=== PATIENT | male | born 1970 | race Two or more races ===

== ENCOUNTER 2021-02-04 09:22 | Inpatient (IN) | payer OTHER ==
[2021-02-04] VITALS (12 sets, daily range): BP systolic 113–154; BP diastolic 42–105
[~2021-02-04] VITALS: Ht 175.3 cm; Wt 74.8 kg
--- NOTE | 2021-02-04 09:35 | NUR ---
Patient brought in RA 88 for a suspected seizure
[2021-02-04 09:43] LABS: BASOPHILS # (AUTO) 0.1 K/uL (0.0-8.0); BASOPHILS % (AUTO) 0.7 % (0.0-2.0); HEMATOCRIT 35.9 % (36.7-47.1); HEMOGLOBIN 11.5 g/dL (12.5-16.3); LYMPHOCYTES # (AUTO) 0.8 K/uL (20.0-40.0); LYMPHOCYTES % (AUTO) 8.5 % (20.5-51.5); MEAN CORPUSCULAR HEMOGLOBIN 27.6 uug (23.8-33.4); MEAN CORPUSCULAR HGB CONC 32 g/dL (32.5-36.3); MEAN CORPUSCULAR VOLUME 86.5 fL (73.0-96.2); MONOCYTES # (AUTO) 0.9 K/uL (2.0-10.0); MONOCYTES % (AUTO) 9.4 % (0.0-11.0); NEUTROPHILS % (AUTO) 81.4 % (38.5-71.5); PLATELET COUNT (AUTO) 150 K/uL (152-348); RED BLOOD CELL COUNT(AUTO) 4.15 MIL/uL (4.06-5.63); WHITE BLOOD COUNT (AUTO) 9.8 K/uL (3.6-10.2)
[2021-02-04] MEDS ORDERED: IV NORMAL SALINE 1000 ML BAG IV ONE ×2 (09:45→12:00)
[2021-02-04] MEDS ORDERED: LORAZEPAM 2 MG/1 ML VIAL IV ONE ×3 (09:45→12:45)
[2021-02-04 09:52] LABS: CARBON DIOXIDE 13 mmol/L (21-32); CHLORIDE 96 mmol/L (98-107); CREATININE 1.6 mg/dL (0.6-1.3); GLUCOSE 161 mg/dL (74-106); POTASSIUM 3.3 mmol/L (3.5-5.1); UREA NITROGEN, BLOOD 11 mg/dL (7-18)
[2021-02-04] MEDS ORDERED: LORAZEPAM 2 MG/1 ML VIAL ONE ×3 (09:52→12:53)
[2021-02-04 09:53] LABS: ETHANOL < 3 MG/DL (0-0)
[2021-02-04 09:57] LABS: ALANINE AMINOTRANSFERASE 99 U/L (16-63); ALKALINE PHOSPHATASE 85 U/L (50-136); ASPARTATE AMINOTRANSFERASE 133 U/L (15-37); BILIRUBIN,DIRECT 0.3 mg/dL (0.0-0.2); BILIRUBIN,TOTAL 0.9 mg/dL (0.2-1.0)
[2021-02-04 10:03] LABS: ACETAMINOPHEN < 2.0 ug/mL (10-30)
[2021-02-04 10:24] LABS: THYROID STIMULATING HORMONE 2.289 mIU/mL (0.358-3.740)
[2021-02-04] MEDS ORDERED: ACETAMINOPHEN ES 500 MG TABLET PO ONE (10:45)
[2021-02-04] MEDS ORDERED: NEOMY/BACITRA/POLYMYXIN B OINT UD PACKET TP ONE ×2 (10:45→10:51)
[2021-02-04] MEDS ORDERED: ACETAMINOPHEN ES 500 MG TABLET ONE (10:51)
[2021-02-04] MEDS ORDERED: POTASSIUM BICARBONATE/CIT AC 25 MEQ TABLET.EFF PO ONE (11:00)
[2021-02-04] MEDS ORDERED: POTASSIUM BICARBONATE/CIT AC 25 MEQ TABLET.EFF ONE (11:01)
[2021-02-04] MEDS ORDERED: ONDANSETRON 4 MG/2 ML VIAL ONE ×2 (11:26)
[2021-02-04] MEDS ORDERED: ONDANSETRON 4 MG/2 ML VIAL IV ONE (11:30)
[2021-02-04] MEDS ORDERED: PANTOPRAZOLE SODIUM 40 MG VIAL IV ONE (11:30)
[2021-02-04 11:45] LABS: *BILIRUBIN,URIN NEGATIVE (NEGATIVE); *BLOOD, URINE 1+ (NEGATIVE); *CLARITY,URINE CLEAR (CLEAR); *COLOR,URINE YELLOW (YELLOW); *KETONES,URINE TRACE (NEGATIVE); *UROBILINOGEN,URINE 0.2 E.U./dl (NORMAL); LEUKOCYTE ESTERASE ,URINE NEGATIVE (NEGATIVE); NITRITE, URINE NEGATIVE (NEGATIVE); PH,URINE 5.5 (5.0-8.0); UGLUCOSE NEGATIVE (NEGATIVE)
[2021-02-04 12:00] LABS: *AMPHETAMINE, URINE NEGATIVE (NEGATIVE); *CANNABINOID, URINE NEGATIVE (NEGATIVE); *COCCAINE, URINE NEGATIVE (NEGATIVE); *OPIATE, URINE NEGATIVE (NEGATIVE); *PHENCYCLIDINE SCREEN,URINE NEGATIVE (NEGATIVE)
[2021-02-04] MEDS ORDERED: PANTOPRAZOLE SODIUM 40 MG VIAL ONE (12:03)
--- NOTE | 2021-02-04 12:07 | NUR ---
side rails padded, no signs of acute distress noted
[2021-02-04] MEDS ORDERED: POTASSIUM CHLORIDE 50 ML IV SCH (13:00)
[2021-02-04] MEDS ORDERED: THIAMINE HCL INJ 100 MG in IV DEXTROSE 5% 50 ML IV SCH (13:00)
[2021-02-04] MEDS ORDERED: FOLIC ACID 5 MG/ML VIAL IV ONE ×2 (13:00→13:08)
[2021-02-04] MEDS ORDERED: IV D5/ 0.9% NACL 1,000 ML IV ONE (13:00)
[2021-02-04] MEDS ORDERED: THIAMINE HCL 200 MG/2 ML VIAL ONE (13:08)
[2021-02-04] MEDS ORDERED: POTASSIUM CHLORIDE 50 ML ONE (13:08)
--- NOTE | 2021-02-04 13:10 | NUR ---
CATHY MATHIS spoke yo Dr Temple for admit to [facility].
--- NOTE | 2021-02-04 14:12 | NUR ---
Pt. admitted to [facility] , under care of Dr. Henao Belongs List completed and belongings sent
--- NOTE | 2021-02-04 14:14 | NUR ---
D5 NS IV fluids continued on transfer to CCU unit
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
[2021-02-04] MEDS ORDERED: ONDANSETRON 4 MG/2 ML VIAL IV PRN (14:45)
[2021-02-04] MEDS ORDERED: MAGNESIUM HYDROXIDE 30 ML LIQUID UDC PO PRN (14:45)
[2021-02-04] MEDS ORDERED: Z GUARD REMEDY PASTE 57 GM TUBE TOP PRN (14:45)
[2021-02-04] MEDS ORDERED: MVI ADULT 10 ML VIAL=1 AMP 10 ML, THIAMINE HCL INJ 100 MG, FOLIC ACID 1 MG, MAGNESIUM S... IV SCH (14:45)
[2021-02-04] MEDS ORDERED: MAGNESIUM SULFATE/D5W 100 ML IV ONE (15:00)
[2021-02-04] MEDS ORDERED: MVI ADULT 10 ML VIAL=1 AMP 10 ML in IV NS 1000 ML 1,000 ML IV PRN (15:00)
[2021-02-04] MEDS: LORAZEPAM 2 MG/1 ML VIAL IV PRN ×3 (15:01→23:31)
[2021-02-04] MEDS: IV NS 1000 ML 1,000 ML IV PRN (15:02)
[2021-02-04] MEDS ORDERED: MVI ADULT 10 ML VIAL=1 AMP 10 ML in IV NS 1000 ML 1,000 ML IV ONE (15:30)
[2021-02-04] MEDS ORDERED: MVI ADULT 10 ML VIAL=1 AMP 10 ML in IV D5/ 0.9% NACL 1,000 ML IV ONE (15:30)
[2021-02-04 15:44] LABS: BACTERIA,URINE FEW /HPF (NONE SEEN); SQUAMOUS EPITHELIAL CELL,UR FEW /HPF (NONE SEEN)
[2021-02-04] MEDS ORDERED: FOLIC ACID 1 MG in IV DEXTROSE 5% 50 ML IV SCH (16:00)
--- NOTE | 2021-02-04 19:00 | NUR ---
Received patient in bed awake and alert. 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 Patient is able toeat and dring regularly. Patient is continent and uses a urinal. Patient has a generalized rash all over his back, neck, and shoulders. Currently on room air.
[2021-02-04] MEDS ORDERED: PERMETHRIN 5% CREAM 60 GM TUBE TP ONE (21:00)
--- NOTE | 2021-02-04 22:15 | NUR ---
Patient removed his peripheral IV line. Catheter intact, site free from blood or injury. New 18g peripheral IV placed in the right forearm, great return, and flushes easily. Patient tolerated without discomfort.
[2021-02-05] VITALS: BP 139/82
--- NOTE | 2021-02-05 02:20 | NUR ---
Transferred up to 3rd floor room 320.Report given to POLO Lombardo. Patient remains in stable condition, no SOB or signs of distress. Patient alert and cooperative. All medications and belongings transferred with the patient.
--- NOTE | 2021-02-05 02:30 | NUR ---
RECEIVED PT FROM CCU. ASSISTED PT TO HIS ROOM. PT IN NO ACUTE DISTRESS. IV INTACT. PT ON RESTRAINT WITH DR SHEPHERD. PT CONFUSED AND TRYING TO REMOVE IV LINES AND TRYING TO GET OUT OF BED. SITTER FOR SAFETY. FPC ASSESSMENT DONE. SKIN ISSUES DOCUMENTED AND PUT ON CHART. SAFETY AND COMFORT PROVIDED. WILL CONTINUE TO MONITOR.
[2021-02-05] MEDS: IV NS 1000 ML 1,000 ML IV PRN ×3 (03:18→19:56)
[2021-02-05 05:00] VITALS: BP 130/80
[2021-02-05] MEDS: LORAZEPAM 2 MG/1 ML VIAL IV PRN ×4 (06:06→19:55)
[2021-02-05 06:40] LABS: BASOPHILS % (AUTO) 0.7 % (0.0-2.0); EOSINOPHILS # (AUTO) 0.1 K/uL (0.0-0.7); EOSINOPHILS % (AUTO) 1.3 % (0.0-7.0); HEMATOCRIT 33.7 % (36.7-47.1); LYMPHOCYTES # (AUTO) 1.5 K/uL (20.0-40.0); LYMPHOCYTES % (AUTO) 22.4 % (20.5-51.5); MEAN CORPUSCULAR HEMOGLOBIN 27.8 uug (23.8-33.4); MEAN CORPUSCULAR HGB CONC 33 g/dL (32.5-36.3); MEAN CORPUSCULAR VOLUME 84.9 fL (73.0-96.2); MONOCYTES % (AUTO) 16.1 % (0.0-11.0); NEUTROPHILS # (AUTO) 3.9 K/uL (1.8-8.9); NEUTROPHILS % (AUTO) 59.5 % (38.5-71.5); PLATELET COUNT (AUTO) 130 K/uL (152-348); RED BLOOD CELL COUNT(AUTO) 3.97 MIL/uL (4.06-5.63); WHITE BLOOD COUNT (AUTO) 6.5 K/uL (3.6-10.2)
--- NOTE | 2021-02-05 06:45 | NUR ---
PT SLEPT INTERMITTENTLY. SITTER FOR SAFETY. ATIVAN 2MG PRN GIVEN AT 0606H BECAUSE PT TRYING TO GET OUT OF BED AND REMOVED IV LINES. PT TOLERATED IT WELL. SAFETY AND COMFORT PROVIDED. ALL NEEDS ARE MET. WILL ENDORSE THAT PTY NEED TO DO BEDBATH TO WASH ELEMITE CREAM ON THE PT. WILL ENDORSE TO INCOMING NURSE FOR CONTINUITY OF CARE.
[2021-02-05 06:54] LABS: CREATININE 0.8 mg/dL (0.6-1.3); MAGNESIUM 2.1 mg/dL (1.8-2.4); PHOSPHOROUS 2.8 mg/dL (2.5-4.9); POTASSIUM 3.6 mmol/L (3.5-5.1); TOTAL PROTEIN, SERUM 7.8 g/dL (6.4-8.2)
[2021-02-05 07:00] VITALS: BP 146/85
[2021-02-05 07:03] LABS: THYROID STIMULATING HORMONE 1.623 mIU/mL (0.358-3.740)
[2021-02-05 07:06] LABS: EOSINOPHILS % (MANUAL) 1 % (0-8); LYMPHOCYTES % (MANUAL) 22 % (20-40); MONOCYTES % (MANUAL) 23 % (2-10); NEUTROPHILS % (MANUAL) 54 % (42-75)
--- NOTE | 2021-02-05 07:45 | NUR ---
Confused, restless. 1:1 sitter at bedside. Bilateral soft restraints, monitored per protocol. side rail padded. IVF infusing. Contact isolation reenforced and maintained
--- NOTE | 2021-02-05 09:30 | NUR ---
Wash off after Elimite treatment done with complete bed bath and shampoo. Noted lice on hair and kaplan. Shaving of kaplan done. Contact isolation maintained.
--- NOTE | 2021-02-05 11:35 | NUR ---
Patient restless and agitated, Ativan IV given as ordered
[2021-02-05] MEDS: MULTIVITAMINS,THERAPEUTIC TABLET PO SCH (11:37)
--- NOTE | 2021-02-05 11:51 | NUR ---
Hoist Cylinder Loader consultation requested due to homelessness. Due to isolation precautions, this BARBER SHOP OPERATOR will complete assessment by video. This BARBER SHOP OPERATOR to coordinate with patient's nurse to set up a time for video session.
[2021-02-05 12:00] VITALS: BP 150/86
[2021-02-05] MEDS ORDERED: FOLIC ACID 1 MG in IV DEXTROSE 5% 50 ML IV SCH (13:00)
[2021-02-05] MEDS: IBUPROFEN 400 MG TABLET PO PRN (13:25)
[2021-02-05] MEDS: CHLORDIAZEPOXIDE HCL 25 MG CAPSULE PO SCH ×2 (13:25→18:00)
[2021-02-05] MEDS: THIAMINE HCL 100 MG TABLET PO SCH (13:25)
[2021-02-05] MEDS: FOLIC ACID 1 MG TABLET PO SCH (13:25)
--- NOTE | 2021-02-05 13:25 | NUR ---
Patient still agitated and profusely sweating, called Dr. Henao with orders. Librium po started.
[2021-02-05] MEDS ORDERED: THIAMINE HCL INJ 100 MG in IV DEXTROSE 5% 50 ML IV SCH (13:30)
--- NOTE | 2021-02-05 15:30 | NUR ---
Patient agitated, restless, getting out of bed multiple times, Ativan given as ordered, not effective for relief of symptoms
[2021-02-05 16:30] VITALS: BP 138/84
--- NOTE | 2021-02-05 16:32 | NUR ---
Attempted abdominal and kid ultrasound at 11:00 and 14:00. Pt uncooperative and restless both times.
[2021-02-05] MEDS ORDERED: HALOPERIDOL LACTATE 5 MG/1 ML VIAL IM ONE (17:30)
[2021-02-05 17:49] LABS: *BILIRUBIN,URIN NEGATIVE (NEGATIVE); *BLOOD, URINE TRACE (NEGATIVE); *CLARITY,URINE CLEAR (CLEAR); *COLOR,URINE YELLOW (YELLOW); *KETONES,URINE NEGATIVE (NEGATIVE); LEUKOCYTE ESTERASE ,URINE NEGATIVE (NEGATIVE); NITRITE, URINE NEGATIVE (NEGATIVE); PH,URINE 6.5 (5.0-8.0); UGLUCOSE NEGATIVE (NEGATIVE)
[2021-02-05 17:53] LABS: *URINE TOTAL PROTEIN RANDOM 41.6 mg/dL (<150/24HR)
[2021-02-05 17:59] LABS: BACTERIA,URINE NONE SEEN /HPF (NONE SEEN); MUCUS,URINE FEW /LPF (0-FEW); RBC,URINE 0-3 /HPF (0-3); SQUAMOUS EPITHELIAL CELL,UR NONE SEEN /HPF (NONE SEEN)
--- NOTE | 2021-02-05 18:24 | NUR ---
Still agitated, called Dr. Henao with order, Haldol IM given as ordered. Repositioned in bed comfortably. Soft wrist restraints, monitored per protocol. 1:1 sitter at bedside
[2021-02-05 20:00] VITALS: BP 144/80
[2021-02-06 00:16] VITALS: BP 132/74
[2021-02-06] MEDS: IV NS 1000 ML 1,000 ML IV PRN ×2 (04:04→13:15)
[2021-02-06] MEDS: LORAZEPAM 2 MG/1 ML VIAL IV PRN ×4 (04:04→21:58)
[2021-02-06 05:10] VITALS: BP 134/88
[2021-02-06 07:03] LABS: BASOPHILS # (AUTO) 0.1 K/uL (0.0-8.0); BASOPHILS % (AUTO) 1.5 % (0.0-2.0); EOSINOPHILS # (AUTO) 0.1 K/uL (0.0-0.7); EOSINOPHILS % (AUTO) 2.1 % (0.0-7.0); HEMATOCRIT 32.8 % (36.7-47.1); HEMOGLOBIN 10.9 g/dL (12.5-16.3); LYMPHOCYTES # (AUTO) 1.7 K/uL (20.0-40.0); LYMPHOCYTES % (AUTO) 26.1 % (20.5-51.5); MEAN CORPUSCULAR HGB CONC 33 g/dL (32.5-36.3); MEAN CORPUSCULAR VOLUME 84.5 fL (73.0-96.2); MONOCYTES # (AUTO) 1.3 K/uL (2.0-10.0); MONOCYTES % (AUTO) 19.9 % (0.0-11.0); NEUTROPHILS # (AUTO) 3.3 K/uL (1.8-8.9); NEUTROPHILS % (AUTO) 50.4 % (38.5-71.5); PLATELET COUNT (AUTO) 131 K/uL (152-348); RED BLOOD CELL COUNT(AUTO) 3.88 MIL/uL (4.06-5.63); WHITE BLOOD COUNT (AUTO) 6.5 K/uL (3.6-10.2)
[2021-02-06 07:24] LABS: CREATININE 0.8 mg/dL (0.6-1.3); MAGNESIUM 1.8 mg/dL (1.8-2.4); PHOSPHOROUS 2.5 mg/dL (2.5-4.9); TOTAL PROTEIN, SERUM 7.8 g/dL (6.4-8.2)
[2021-02-06 08:00] VITALS: BP 140/89
--- NOTE | 2021-02-06 08:00 | NUR ---
Sitter at bedside for safety secondary pt is attempting to pull out his IV and get oob. IVF infusing as ordered. no s/s of infiltration noted. Instructed sitter to offer urinal every hour and meet any basic needs. Pt denies any c/o pain. PT is Colombian speaking. Padded side rail for seizure precaution secondary to possible etoh withdrawal.
[2021-02-06] MEDS: CHLORDIAZEPOXIDE HCL 25 MG CAPSULE PO SCH ×3 (09:04→17:28)
[2021-02-06] MEDS: FOLIC ACID 1 MG TABLET PO SCH (09:04)
[2021-02-06] MEDS: MULTIVITAMINS,THERAPEUTIC TABLET PO SCH (09:04)
[2021-02-06] MEDS: THIAMINE HCL 100 MG TABLET PO SCH (09:05)
[2021-02-06] MEDS ORDERED: POTASSIUM CHLORIDE 20 MEQ TAB.PRT.SR PO ONE ×2 (09:30→11:30)
--- NOTE | 2021-02-06 10:00 | NUR ---
haleigh Wrist restraint released secondary to pt toni cooperative.
--- NOTE | 2021-02-06 10:03 | NUR ---
Belt And Link Assembly Supervisor note: This BROKE BEATER MACHINE OPERATOR contacted patient's nurse Galva to schedule a time to do a video assessment with the patient. Galva stated that he would coordinate the request, and call this BROKE BEATER MACHINE OPERATOR back.
[2021-02-06 11:03] VITALS: BP 144/80
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
[2021-02-06 14:51] LABS: EOSINOPHILS % (MANUAL) 3 % (0-8); LYMPHOCYTES % (MANUAL) 25 % (20-40); MONOCYTES % (MANUAL) 20 % (2-10); NEUTROPHILS % (MANUAL) 52 % (42-75)
[2021-02-06 16:00] VITALS: BP 144/88
--- NOTE | 2021-02-06 19:30 | NUR ---
Received pt in bed, awake and verbally responsive. Slovenian speaking but understands Mongolian. Able to communicate needs. No s/s of respiratory distress. Denies any pain or discomfort. IV fluids infusing well. Pt with bilateral wrist restraints for safety. Padded side rails for seizure precaution. Safety measures initiated, sitter at bedside. will continue to monitor.
[2021-02-06 20:00] VITALS: BP 141/87
[2021-02-06] MEDS: POTASSIUM CHLORIDE 20 MEQ in IV 1/2NS 1000 ML 1,000 ML IV PRN (22:12)
[2021-02-06] MEDS: IBUPROFEN 400 MG TABLET PO PRN (23:04)
[2021-02-07] MEDS ORDERED: LORAZEPAM 2 MG/1 ML VIAL IV ONE (00:15)
--- NOTE | 2021-02-07 00:20 | NUR ---
Pt is agitated, getting out of bed, fighting back. Notified Dr. Devlin and received an order for Ativan 2mg IV x 1. Medication given, tolerated well.
[2021-02-07] MEDS ORDERED: HALOPERIDOL LACTATE 5 MG/1 ML VIAL IM ONE (01:30)
--- NOTE | 2021-02-07 02:15 | NUR ---
Pt's CIWA-Ar is 35 with increased agitation, fighting to get out of bed,refusing care. Notified Dr. Devlin and received an order of Haldol 2mg IM x 1. Medication administered as ordered. Pt tolerated medication well. Calmed down and fell asleep. VS are as follows: BP: 145/80, P: 101, RR: 20, T: 98,O2: 97. Will continue to monitor.
[2021-02-07 04:04] VITALS: BP 134/79
--- NOTE | 2021-02-07 06:32 | NUR ---
Pt asleep but easily arousable, denies any pain or discomfort. Non labored breathing. IVF infusing well. Medications tolerated. Urinal at bedside. Bilateral soft wrist restraints on. Safety measures maintained at all times. all needs attended.
[2021-02-07 06:58] LABS: BASOPHILS # (AUTO) 0.1 K/uL (0.0-8.0); BASOPHILS % (AUTO) 1.1 % (0.0-2.0); EOSINOPHILS # (AUTO) 0.2 K/uL (0.0-0.7); EOSINOPHILS % (AUTO) 3.1 % (0.0-7.0); LYMPHOCYTES # (AUTO) 2.2 K/uL (20.0-40.0); LYMPHOCYTES % (AUTO) 30.7 % (20.5-51.5); MEAN CORPUSCULAR HEMOGLOBIN 27.5 uug (23.8-33.4); MEAN CORPUSCULAR HGB CONC 32 g/dL (32.5-36.3); MONOCYTES # (AUTO) 1.1 K/uL (2.0-10.0); MONOCYTES % (AUTO) 15.4 % (0.0-11.0); NEUTROPHILS # (AUTO) 3.5 K/uL (1.8-8.9); NEUTROPHILS % (AUTO) 49.7 % (38.5-71.5); PLATELET COUNT (AUTO) 148 K/uL (152-348); RED BLOOD CELL COUNT(AUTO) 3.99 MIL/uL (4.06-5.63); WHITE BLOOD COUNT (AUTO) 7.1 K/uL (3.6-10.2)
[2021-02-07 07:19] LABS: CREATININE 0.7 mg/dL (0.6-1.3); MAGNESIUM 1.9 mg/dL (1.8-2.4); PHOSPHOROUS 4.3 mg/dL (2.5-4.9)
--- NOTE | 2021-02-07 07:30 | NUR ---
START OF SHIFT received change of shift report, pt in bed c/o of delirium tremens, a/o x3, confused at times. pt has scabies on the upper back and head lice, pt on room air, no signs of distress, no reports of pain, pt ambulatory with assist, unsteady. Urinal at bedside, diaper on. Iv access on the right FA 20g infusing 1/2 NS+20KCL at 100cc. pt on bilateral soft wrist restraints, will continue to monitor.
[2021-02-07 08:11] VITALS: BP 136/93
[2021-02-07] MEDS: THIAMINE HCL 100 MG TABLET PO SCH (08:52)
[2021-02-07] MEDS: MULTIVITAMINS,THERAPEUTIC TABLET PO SCH (08:52)
[2021-02-07] MEDS: FOLIC ACID 1 MG TABLET PO SCH (08:52)
[2021-02-07] MEDS: CHLORDIAZEPOXIDE HCL 25 MG CAPSULE PO SCH ×3 (08:52→17:18)
[2021-02-07] MEDS ORDERED: IBUPROFEN 400 MG TABLET PO PRN (09:03)
[2021-02-07] MEDS: POTASSIUM CHLORIDE 20 MEQ TAB.PRT.SR PO SCH ×2 (09:42→11:51)
[2021-02-07] MEDS: POTASSIUM CHLORIDE 20 MEQ in IV 1/2NS 1000 ML 1,000 ML IV PRN ×2 (09:42→21:48)
[2021-02-07] MEDS ORDERED: HALOPERIDOL DECANOATE 50 MG/1 ML AMPUL IM PRN (11:15)
[2021-02-07] MEDS ORDERED: PERMETHRIN 5% CREAM 60 GM TUBE TP ONE (11:30)
[2021-02-07 12:00] VITALS: BP 131/87
--- NOTE | 2021-02-07 12:00 | NUR ---
pt agreed to have hair shaved to help decrease number of fleas, lice and eggs. Pt was given bath in Elimite cream, to be washed out at 2000 today.
[2021-02-07] MEDS ORDERED: HALOPERIDOL LACTATE 5 MG/1 ML VIAL IM PRN (12:45)
[2021-02-07 12:46] LABS: LYMPHOCYTES % (MANUAL) 29 % (20-40); NEUTROPHILS % (MANUAL) 57 % (42-75)
[2021-02-07 12:47] LABS: EOSINOPHILS % (MANUAL) 1 % (0-8); MONOCYTES % (MANUAL) 13 % (2-10)
[2021-02-07] MEDS: LORAZEPAM 2 MG/1 ML VIAL IV PRN (13:01)
[2021-02-07 16:00] VITALS: BP 133/77
--- NOTE | 2021-02-07 17:15 | NUR ---
pt urinated all over floor, pt has urinal at bedside and turned on his side to urinate on floor x2.
--- NOTE | 2021-02-07 17:20 | NUR ---
pt pulled out IV and cut the IV tubing to the Fluids with his teeth. will attempt to start another IV, to continue with fluids.
--- NOTE | 2021-02-07 18:17 | NUR ---
pt has 1:1 sitter at bedside, a/ox3 with spells of confusion, pt has upper back scabies, was cleaned with Elimite to kill all fleas and lice, pt on room air, no reports of pain. pt on diaper, homeless, bed in low and locked position, call light within reach, safety precautions in place, will endorse to oncoming nurse.
[2021-02-07 19:57] VITALS: BP 142/78
[2021-02-08] MEDS: LORAZEPAM 2 MG/1 ML VIAL IV PRN ×3 (00:16→14:47)
--- NOTE | 2021-02-08 01:00 | NUR ---
Patient in bed awake alert with periods of confusion.On RA .No s/s of distress noted.Patient took shower .Snacks provided.Iv on Right FA with IVF running at 100 ml/hr. Tolerated well .Patient gets agitated.Tried to get out of bed.Ativan IVP given. 1:1 sitter at bedside.Seizures precaution and safety measures in place.
[2021-02-08 03:47] LABS: ALBUMIN 3.4; ALPHA-1-GLOBULIN 0.3; ALPHA-2-GLOBULIN 0.6; BETA GLOBULIN 1.1
[2021-02-08 03:48] LABS: A/G RATIO 0.9; GAMMA GLOBULIN 1.7; GLOBULIN, TOTAL 3.7; M-SPIKE NOT OBSERVED
[2021-02-08 04:00] VITALS: BP 132/68
[2021-02-08 06:07] LABS: BASOPHILS # (AUTO) 0.1 K/uL (0.0-8.0); BASOPHILS % (AUTO) 1.7 % (0.0-2.0); EOSINOPHILS # (AUTO) 0.4 K/uL (0.0-0.7); EOSINOPHILS % (AUTO) 5.2 % (0.0-7.0); HEMATOCRIT 34.5 % (36.7-47.1); HEMOGLOBIN 11.1 g/dL (12.5-16.3); LYMPHOCYTES # (AUTO) 1.9 K/uL (20.0-40.0); LYMPHOCYTES % (AUTO) 27.6 % (20.5-51.5); MEAN CORPUSCULAR HEMOGLOBIN 27.7 uug (23.8-33.4); MEAN CORPUSCULAR HGB CONC 32 g/dL (32.5-36.3); MEAN CORPUSCULAR VOLUME 86.5 fL (73.0-96.2); MONOCYTES # (AUTO) 0.9 K/uL (2.0-10.0); MONOCYTES % (AUTO) 13.4 % (0.0-11.0); NEUTROPHILS # (AUTO) 3.6 K/uL (1.8-8.9); NEUTROPHILS % (AUTO) 52.1 % (38.5-71.5); PLATELET COUNT (AUTO) 190 K/uL (152-348); RED BLOOD CELL COUNT(AUTO) 3.99 MIL/uL (4.06-5.63); WHITE BLOOD COUNT (AUTO) 6.9 K/uL (3.6-10.2)
[2021-02-08 06:29] LABS: BILIRUBIN,TOTAL 0.5 mg/dL (0.2-1.0); CREATININE 0.8 mg/dL (0.6-1.3); MAGNESIUM 1.6 mg/dL (1.8-2.4); PHOSPHOROUS 4.7 mg/dL (2.5-4.9); POTASSIUM 3.9 mmol/L (3.5-5.1); TOTAL PROTEIN, SERUM 7.4 g/dL (6.4-8.2)
--- NOTE | 2021-02-08 06:35 | NUR ---
Patient has urinal at bedside.Refused to used it .Urinated all over the floor x1. Reinforced teaching to use urinal .Sitter at bedside. Encourage patient to call for assistance. Will endorse to oncoming shift.
--- NOTE | 2021-02-08 07:36 | NUR ---
Recieved awake and responsive. In no acute distress. Calm at this time. Patient is not communicative. Sitter at bedside. BEd is low and locked. Personal belongings and call light are within reach. Safety measures maintained. Patient is comfortable. Will continue to monitor
[2021-02-08] MEDS: CHLORDIAZEPOXIDE HCL 25 MG CAPSULE PO SCH ×3 (08:43→17:15)
[2021-02-08] MEDS: MULTIVITAMINS,THERAPEUTIC TABLET PO SCH (08:43)
[2021-02-08] MEDS: THIAMINE HCL 100 MG TABLET PO SCH (08:43)
[2021-02-08] MEDS: FOLIC ACID 1 MG TABLET PO SCH (08:43)
[2021-02-08] MEDS: MAGNESIUM SULFATE/D5W 100 ML IV SCH ×2 (09:57→11:29)
[2021-02-08] MEDS: POTASSIUM CHLORIDE 20 MEQ in IV 1/2NS 1000 ML 1,000 ML IV PRN (09:57)
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
--- NOTE | 2021-02-08 11:54 | NUR ---
Due to patient's isolation precautions, SW left the homeless resource packet in patient's chart, to be given to him at time of discharge. SW also completed the homeless patient waiver form and left it in the patient's chart for nurse to have patient sign at time of discharge.
[2021-02-08 12:00] VITALS: BP 106/72
[2021-02-08] MEDS ORDERED: diphenhydrAMINE 50 MG CAPSULE PO PRN (12:30)
[2021-02-08] MEDS ORDERED: CHLO25CA22 PO (16:00)
[2021-02-08] MEDS ORDERED: ACET-2154 PO (16:00)
[2021-02-08] MEDS ORDERED: TEMA15CA PO (16:00)
[2021-02-08] MEDS ORDERED: FAMO-132 PO (16:00)
[2021-02-08] MEDS ORDERED: MAGN400O6 PO (16:00)
[2021-02-08] MEDS ORDERED: FOLI1TAB94 PO (16:00)
[2021-02-08] MEDS ORDERED: IBUP-1953 PO (16:00)
[2021-02-08] MEDS ORDERED: DIPH50CA37 PO (16:00)
[2021-02-08] MEDS ORDERED: THIA100T13 PO (16:00)
[2021-02-08] MEDS ORDERED: MULT-24 PO (16:00)
[2021-02-08 16:04] VITALS: BP 119/84
[2021-02-08] MEDS ORDERED: LACT10SO3 PO (16:19)
--- NOTE | 2021-02-08 17:00 | NUR ---
Patient for discharge gave report to Eliane CUELLAR at [facility]. Skin check done. Patient was cooperative. Patient's personal clothes were discarded a few days ago when patient had shower due to scabies and lice. Charge nurse is aware.
--- NOTE | 2021-02-08 18:20 | NUR ---
Patient is discharged picked up by 2 crop roller from [facility]. Patient alert and responsive with episodes of confusion. NO respiratory distress noted. Skin check done. Per charge nurse patient's clothes were discarded when he took shower a few days ago due to presence of lice and scabies. Patient was made aware. Patient asked for pain medication and given as ordered. He was asked if he wanted flu and pna vaccine but he refused risks and benefits explained but he shook his head. Patient is comfortable. VS WNL. Left in stable condition.
--- NOTE | 2021-02-08 19:11 | NUR ---
Addendum to discharge: Right forearm IV line was removed . No bleeding noted. No facial grimacing. Pressure dressing applied. Patient was comfortable.
== END 2021-02-08 18:20 | DRG 775 ==
LOC: ER 09:22 → EDBD 09:22 → CCU 13:38 → TELE3 02-05 02:33 → MEDSURG3 02-06 14:04
PROVIDERS: ADMIT Internal Medicine; ATTEND Internal Medicine
DX: F10.231 Alcohol dependence with withdrawal delirium (principal); N17.0 Acute kidney failure with tubular necrosis; G92 Toxic encephalopathy; D69.6 Thrombocytopenia, unspecified; G93.89 Other specified disorders of brain; B85.2 Pediculosis, unspecified; M62.82 Rhabdomyolysis; R56.9 Unspecified convulsions; E87.6 Hypokalemia; Y90.0 Blood alcohol level of less than 20 mg/100 ml; D63.8 Anemia in other chronic diseases classified elsewhere; Z20.822 Contact with and (suspected) exposure to COVID-19; Z59.0 Homelessness; E78.5 Hyperlipidemia, unspecified; B85.3 Phthiriasis; L98.9 Disorder of the skin and subcutaneous tissue, unspecified; M50.322 Other cervical disc degeneration at C5-C6 level; S00.81XA Abrasion of other part of head, initial encounter; X58.XXXA Exposure to other specified factors, initial encounter; Y93.9 Activity, unspecified; Y92.89 Other specified places as the place of occurrence of the external cause; K76.9 Liver disease, unspecified
CPT/HCPCS: 36415; 70030-TC; 70450; 71045; 72125; 83690; 83735; 83970; 84100; 84155; 84156; 84165; 84300; 84443; 85025; 85730; 87086; 93005; A9150; C9113; G0378; G0480; J1630; J2060; J2405; J3411; J3475; J3480; J3490; J7030; J7042; J7050; J7060; Q0163

== ENCOUNTER 2021-03-19 13:36 | Inpatient (IN) | payer OTHER ==
[~2021-03-19] VITALS: Ht 175.3 cm; Wt 74.8 kg
[~2021-03-19 13:36] MED LIST: ACET-2154 PO; CHLO25CA22 PO; DIPH50CA37 PO; FAMO-132 PO; FOLI1TAB94 PO; IBUP-1953 PO; LACT10SO3 PO; MAGN400O6 PO; MULT-24 PO; TEMA15CA PO; THIA100T13 PO
--- NOTE | 2021-03-19 13:44 | NUR ---
Dr Lomas at the bedside for MSE.
--- NOTE | 2021-03-19 13:58 | NUR ---
Pt out of ER for CT.
[2021-03-19 14:02] LABS: *BILIRUBIN,URIN NEGATIVE (NEGATIVE); *BLOOD, URINE NEGATIVE (NEGATIVE); *CLARITY,URINE CLEAR (CLEAR); *COLOR,URINE YELLOW (YELLOW); *KETONES,URINE NEGATIVE (NEGATIVE); *UROBILINOGEN,URINE 0.2 E.U./dl (NORMAL); BASOPHILS # (AUTO) 0.1 K/uL (0.0-8.0); BASOPHILS % (AUTO) 1.4 % (0.0-2.0); EOSINOPHILS # (AUTO) 0.1 K/uL (0.0-0.7); EOSINOPHILS % (AUTO) 1.5 % (0.0-7.0); HEMOGLOBIN 11.9 g/dL (12.5-16.3); LEUKOCYTE ESTERASE ,URINE NEGATIVE (NEGATIVE); LYMPHOCYTES # (AUTO) 2.4 K/uL (20.0-40.0); LYMPHOCYTES % (AUTO) 28.7 % (20.5-51.5); MEAN CORPUSCULAR HEMOGLOBIN 28.8 uug (23.8-33.4); MEAN CORPUSCULAR HGB CONC 33 g/dL (32.5-36.3); MEAN CORPUSCULAR VOLUME 87.1 fL (73.0-96.2); MONOCYTES # (AUTO) 0.8 K/uL (2.0-10.0); MONOCYTES % (AUTO) 9.9 % (0.0-11.0); NEUTROPHILS % (AUTO) 58.5 % (38.5-71.5); NITRITE, URINE NEGATIVE (NEGATIVE); PH,URINE 5.5 (5.0-8.0); PLATELET COUNT (AUTO) 385 K/uL (152-348); RED BLOOD CELL COUNT(AUTO) 4.14 MIL/uL (4.06-5.63); UGLUCOSE NEGATIVE (NEGATIVE); WHITE BLOOD COUNT (AUTO) 8.5 K/uL (3.6-10.2)
[2021-03-19] MEDS ORDERED: ASCO500P18 PO (14:08)
[2021-03-19] MEDS ORDERED: ACET-2605 PO ×2 (14:08)
[2021-03-19] MEDS ORDERED: DOCU-141 PO (14:08)
[2021-03-19] MEDS ORDERED: CRAN425C6 PO (14:08)
[2021-03-19 14:11] LABS: ETHANOL < 3 MG/DL (0-0)
--- NOTE | 2021-03-19 14:12 | NUR ---
PT back from CT, resting in bed, NAD noted. Continue tele monitoring.
[2021-03-19 14:13] LABS: ALANINE AMINOTRANSFERASE 24 U/L (16-63); ALKALINE PHOSPHATASE 70 U/L (50-136); ASPARTATE AMINOTRANSFERASE 21 U/L (15-37); BILIRUBIN,DIRECT 0.1 mg/dL (0.0-0.2); BILIRUBIN,TOTAL 0.4 mg/dL (0.2-1.0); CARBON DIOXIDE 27 mmol/L (21-32); CHLORIDE 99 mmol/L (98-107); CREATININE 0.7 mg/dL (0.6-1.3); GLUCOSE 95 mg/dL (74-106); POTASSIUM 3.8 mmol/L (3.5-5.1); TOTAL PROTEIN, SERUM 7.9 g/dL (6.4-8.2); UREA NITROGEN, BLOOD 11 mg/dL (7-18)
[2021-03-19 14:14] LABS: *AMPHETAMINE, URINE NEGATIVE (NEGATIVE); *CANNABINOID, URINE NEGATIVE (NEGATIVE); *COCCAINE, URINE NEGATIVE (NEGATIVE); *OPIATE, URINE NEGATIVE (NEGATIVE); *PHENCYCLIDINE SCREEN,URINE NEGATIVE (NEGATIVE)
[2021-03-19 14:21] LABS: THYROID STIMULATING HORMONE 2.359 mIU/mL (0.358-3.740)
--- NOTE | 2021-03-19 14:58 | NUR ---
COVID swab collected and sent to LAB.
--- NOTE | 2021-03-19 16:04 | NUR ---
Pt is medically cleared by DR Lomas. PET assistant director of nursing Donato Anglin AMBULATORY CARE NURSE called. Per Art's request placed a call to Venus Ma, clinical social work therapist for Pt's eval, ETA 10 min.
--- NOTE | 2021-03-19 16:31 | NUR ---
Venus, social work therapist at the bedside, brenton gomez for pt.
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
--- NOTE | 2021-03-19 17:08 | NUR ---
Placed a call to Elena Rivera([email or web address]), per Dr reyes.
--- NOTE | 2021-03-19 17:21 | NUR ---
Per Venus, [facility] involved [facility] the pt in another facility. Venus spoke to pt's PMD, Dr Ponce.
--- NOTE | 2021-03-19 17:34 | NUR ---
CATHY MATHIS spoke to Venus, social work instructor, and sophy Tomlin. Per Dr Lomas request, I call Elena again for Psych eval.
--- NOTE | 2021-03-19 18:49 | NUR ---
Elena Rivera from [facility] at the bedside for Psych eval.
--- NOTE | 2021-03-19 19:15 | NUR ---
Recieved report from POLO Duncan
--- NOTE | 2021-03-19 19:16 | NUR ---
Elena Rivera (PET) faxed over pt. info to [facility] to determine if pt. can be placed there voluntarily.
--- NOTE | 2021-03-19 20:00 | NUR ---
Pt. repeatedly attempting to collect belongings and leave, pt. confused. Pt. reoriented, fall precautions in place. notified.
[2021-03-20] MEDS ORDERED: MAGNESIUM HYDROXIDE 30 ML LIQUID UDC PO PRN (02:15)
[2021-03-20] MEDS ORDERED: LORAZEPAM 2 MG/1 ML VIAL IV PRN (02:15)
[2021-03-20] MEDS ORDERED: ONDANSETRON 4 MG/2 ML VIAL IV PRN (02:15)
[2021-03-20] MEDS ORDERED: HYDROCODONE/APAP 5-325MG TABLET PO PRN (02:15)
[2021-03-20] MEDS ORDERED: HALOPERIDOL LACTATE 5 MG/1 ML VIAL IM PRN (02:15)
[2021-03-20] MEDS ORDERED: ACETAMINOPHEN 325 MG TABLET PO PRN (02:15)
[2021-03-20] MEDS ORDERED: HALOPERIDOL LACTATE IV PRN (02:15)
[2021-03-20] MEDS ORDERED: DEXTROSE 5% IV PRN (02:15)
--- NOTE | 2021-03-20 02:30 | NUR ---
Fall precautions in place, Pt A&Ox2. Security was called and is monitoring pt 1:1, aware.
[2021-03-20] MEDS ORDERED: ZIPRASIDONE MESYLATE 20 MG VIAL IM ONE ×2 (02:54→03:00)
--- NOTE | 2021-03-20 06:30 | NUR ---
Received patient from the ER via alla accompanied by REFERENCE SERVICES HEAD Kilo. Patient ambulated from the hallway to his room. AAOx3 with some confusion. Able to answer questions. In no acute distress. Denies any pain or SOB. IV site on left hand intact and patent. Needs assessed and attended to. Safety measure initiated and call zuñiga within reached.
[2021-03-20 06:34] VITALS: BP 103/68
[2021-03-20 07:53] VITALS: BP 102/77
[2021-03-20] MEDS ORDERED: Medication Not On Formulary EA (Ascorbic Acid (Vitamin C) 500 MG) PO SCH (09:00)
[2021-03-20] MEDS: ASCORBIC ACID 500 MG TABLET PO SCH (09:24)
[2021-03-20] MEDS: FOLIC ACID 1 MG TABLET PO SCH (09:24)
[2021-03-20] MEDS: MULTIVITAMINS,THERAPEUTIC TABLET PO SCH (09:24)
[2021-03-20] MEDS: FAMOTIDINE 20 MG TABLET PO SCH (09:24)
[2021-03-20] MEDS: THIAMINE HCL 100 MG TABLET PO SCH (09:24)
[2021-03-20 12:04] VITALS: BP 116/80
[2021-03-20 15:57] VITALS: BP 121/79
--- NOTE | 2021-03-20 19:30 | NUR ---
Received patient sitting in bed. AAOx3. In no acute distress. Denies any pain or SOB at this time. Left hand IV site intact and patent. Needs assessed and attended to. Safety measure initiated and call zuñiga within reached.
[2021-03-20 20:05] VITALS: BP 116/78
[2021-03-20] MEDS ORDERED: DOCUSATE SODIUM 100 MG CAPSULE PO SCH (21:00)
[2021-03-21 04:42] VITALS: BP 120/73
[2021-03-21 06:44] LABS: BASOPHILS % (AUTO) 0.1 % (0.0-2.0); EOSINOPHILS # (AUTO) 0.2 K/uL (0.0-0.7); EOSINOPHILS % (AUTO) 2.6 % (0.0-7.0); HEMOGLOBIN 13.4 g/dL (12.5-16.3); LYMPHOCYTES # (AUTO) 3.3 K/uL (20.0-40.0); LYMPHOCYTES % (AUTO) 41.4 % (20.5-51.5); MEAN CORPUSCULAR HEMOGLOBIN 28.5 uug (23.8-33.4); MEAN CORPUSCULAR HGB CONC 33 g/dL (32.5-36.3); MEAN CORPUSCULAR VOLUME 87.2 fL (73.0-96.2); MONOCYTES # (AUTO) 0.9 K/uL (2.0-10.0); MONOCYTES % (AUTO) 11.3 % (0.0-11.0); NEUTROPHILS # (AUTO) 3.6 K/uL (1.8-8.9); NEUTROPHILS % (AUTO) 44.6 % (38.5-71.5); PLATELET COUNT (AUTO) 416 K/uL (152-348)
--- NOTE | 2021-03-21 06:44 | NUR ---
Pt slept through out the night. No behavioral issues noted although still had periods of confusion. In no acute distress. No further complain of pain. IV site on left hand remains intact and patent. Needs attended to and met. Safety measure maintained and call zuñiga within reached.
[2021-03-21 07:00] LABS: BILIRUBIN,TOTAL 0.4 mg/dL (0.2-1.0); CREATININE 0.7 mg/dL (0.6-1.3); MAGNESIUM 2.3 mg/dL (1.8-2.4); PHOSPHOROUS 3.7 mg/dL (2.5-4.9); POTASSIUM 4.2 mmol/L (3.5-5.1); TOTAL PROTEIN, SERUM 8.5 g/dL (6.4-8.2)
[2021-03-21] MEDS: FAMOTIDINE 20 MG TABLET PO SCH (08:02)
[2021-03-21] MEDS: ASCORBIC ACID 500 MG TABLET PO SCH (08:02)
[2021-03-21] MEDS: FOLIC ACID 1 MG TABLET PO SCH (08:03)
[2021-03-21] MEDS: THIAMINE HCL 100 MG TABLET PO SCH (08:03)
[2021-03-21] MEDS: MULTIVITAMINS,THERAPEUTIC TABLET PO SCH (08:03)
--- NOTE | 2021-03-21 15:21 | NUR ---
Discharged patient as ordered. Patient refuses to return to [facility] and given/signed homeless resource packet. Patient given metro bus pass and two meal bags. Discussed discharge packet, FORMULA BOTTLER at bedside to translate. Discharge packet printed in Dutch. Verbalized understanding. IV removed - no s/s of bleeding noted. Escorted down to the lobby - walked out with steady gait. Given directions to patient's preferred destination.
== END 2021-03-21 15:30 | disposition home or self-care (01) | DRG 58 ==
LOC: ER 13:36 → MEDSURG3 03-20 06:03
PROVIDERS: ADMIT Internal Medicine; ATTEND Internal Medicine
DX: I69.398 Other sequelae of cerebral infarction (principal); D69.6 Thrombocytopenia, unspecified; G93.89 Other specified disorders of brain; F23 Brief psychotic disorder; E78.5 Hyperlipidemia, unspecified; D64.9 Anemia, unspecified; Z20.822 Contact with and (suspected) exposure to COVID-19; Z59.0 Homelessness; Z87.828 Personal history of other (healed) physical injury and trauma; F10.21 Alcohol dependence, in remission
CPT/HCPCS: 36415; 70450; 71045; 83735; 84100; 84443; 85025; 93005; A4663; G0378; G0480; J3486